=== PATIENT | female | born 1995 | race Caucasian/White ===

== ENCOUNTER → 2020-06-27 | Outpatient (CLI) | payer BC | LOC: LAB 08:31 | DX: D89.89 Other specified disorders involving the immune mechanism, not elsewhere classified (principal); L98.2 Febrile neutrophilic dermatosis [Sweet]; R76.8 Other specified abnormal immunological findings in serum; R76.0 Raised antibody titer; M25.50 Pain in unspecified joint | CPT/HCPCS: 36415; 82164; 82728 ==